=== PATIENT | male | born 1950 | race Hispanic/Latino ===

== ENCOUNTER → 2019-07-27 | Outpatient (CLI) | payer OTHER, MEDICARE | END | disposition home or self-care (01) | LOC: RAH 11:28 | PROVIDERS: ATTEND Internal Medicine | DX: M19.072 Primary osteoarthritis, left ankle and foot (principal); M20.12 Hallux valgus (acquired), left foot; M79.601 Pain in right arm | CPT/HCPCS: 73060; 73630 ==

== ENCOUNTER → 2022-10-15 | Outpatient (CLI) | payer OTHER, MEDICARE | END | disposition home or self-care (01) | LOC: RAH 09:37 | PROVIDERS: ATTEND Internal Medicine | DX: R10.84 Generalized abdominal pain (principal) | CPT/HCPCS: 76700; 76856 ==

== ENCOUNTER 2023-02-28 06:50 | Day surgery (SDC) | payer OTHER, MEDICARE ==
[2023-02-25 10:54] LABS: APPEARANCE,URINE CLEAR (CLEAR); BILIRUBIN,URINE NEGATIVE (NEGATIVE); COLOR,URINE COLORLESS (YELLOW); GLUCOSE, URINE (UA) NEGATIVE (NEGATIVE); KETONES,URINE NEGATIVE (NEGATIVE); LEUKOCYTE ESTERASE ,URINE NEGATIVE Leu/uL (NEGATIVE); NITRATE,URINE NEGATIVE (NEGATIVE); OCCULT BLOOD,URINE NEGATIVE (NEGATIVE); PROTEIN,URINE NEGATIVE (NEGATIVE); UROBILINOGEN,URINE 0.2 mg/dL (0.2-1.0)
[2023-02-25 10:56] LABS: ADD UA MICROSCOPIC NO
[2023-02-25 11:29] VITALS: BP 165/69; PULSE 67; RESP 17
[2023-02-25 11:36] LABS: BASOPHILS # (AUTO) 0.06 K/uL (0.00-0.20); BASOPHILS % (AUTO) 0.8 % (0.0-5.0); EOSINOPHILS # (AUTO) 0.15 K/uL (0.00-0.70); EOSINOPHILS % (AUTO) 2.1 % (0.0-8.0); HEMATOCRIT 41.7 % (42-54); IMMATURE GRANULOCYTE ABSOLUTE 0.02 K/uL (0-1); LYMPHOCYTES # (AUTO) 1.5 K/uL (1.0-4.8); LYMPHOCYTES % (AUTO) 21.2 % (21.0-51.0); MEAN CORPUSCULAR HEMOGLOBIN 31.6 pg (27.0-33.0); MEAN CORPUSCULAR HGB CONC 32.6 g/dL (32.0-36.0); MEAN CORPUSCULAR VOLUME 96.8 fL (79-99); MONOCYTES # (AUTO) 0.7 K/uL (0.1-1.0); NEUTROPHILS # (AUTO) 4.8 K/uL (1.8-7.7); NEUTROPHILS % (AUTO) 66.6 % (40.0-77.0); PLATELET COUNT (AUTO) 314 K/uL (130-400); RED BLOOD CELL COUNT(AUTO) 4.31 MIL/uL (4.50-6.20); RED CELL DISTRIBUTION WIDTH 13.2 % (11.0-15.5); WHITE BLOOD COUNT (AUTO) 7.2 K/uL (4.8-10.8)
[2023-02-25 11:50] LABS: CREATININE 0.8 mg/dL (0.5-1.5)
[2023-02-25 11:52] LABS: INR < 0.93 (0.85-1.15); PROTHROMBIN TIME 10.7 SEC (9.6-11.6)
[2023-02-25 11:54] LABS: PARTIAL THROMBOPLASTIN TIME 28.1 SEC (26.3-35.5)
[~2023-02-28] VITALS: Ht 147.3 cm; Wt 51.9 kg
[2023-02-28] VITALS (19 sets, daily range): BP systolic 124–162; BP diastolic 52–78; PULSE 56–87; RESP 10–19
[~2023-02-28 06:50] MED LIST: BUSP5TAB3 PO; CALC-1125 PO; CHOL100040 PO; KRIL1CAP29 PO; LEVO5TAB13 PO; MELA1TAB64 PO; MIRT-72 PO; MULT-1296 PO; PANT20TA18 PO; SIME125C81 PO
[2023-02-28] MEDS ORDERED: LACTATED RINGERS 1000ML 1,000 ML IV ONE (06:54)
[2023-02-28] MEDS ORDERED: CEFAZOLIN SODIUM 2 GM VIAL ONE (06:54)
[2023-02-28] MEDS ORDERED: BUPIVACAINE/PF 0.5% 10ML VIAL ONE (06:57)
[2023-02-28] MEDS ORDERED: BUPIVACAINE/PF 0.25% 30ML VIAL IJ ONE (06:57)
[2023-02-28] MEDS ORDERED: [UNRECOGNIZED DRUG - OTHER] PO (07:24)
[2023-02-28] MEDS ORDERED: PROPOFOL 10 MG/ML 20ML VIAL IV ONE (07:32)
[2023-02-28] MEDS ORDERED: LIDOCAINE PF 100MG/5ML (2%) SYRINGE 5ML ONE (07:32)
[2023-02-28] MEDS ORDERED: FENTANYL CITRATE PF 50 MCG/1 ML 2ML VIAL ONE ×2 (07:33→09:58)
[2023-02-28] MEDS ORDERED: ROCURONIUM 10MG/1ML SYR 10 MG/ML ML ONE (07:33)
[2023-02-28] MEDS ORDERED: PHENYLEPHRINE HCL 10 MG/ML 1ML VIAL IV ONE (09:04)
[2023-02-28] MEDS ORDERED: ONDANSETRON 4MG INJ ONE (09:05)
[2023-02-28] MEDS ORDERED: DEXAMETHASONE SOD PHOSPHATE 4 MG/ML 1ML VIAL ONE (09:05)
[2023-02-28] MEDS ORDERED: GLYCOPYRROLATE 1 MG/5 ML SYRINGE ONE (09:50)
[2023-02-28] MEDS ORDERED: NEOSTIGMINE 5MG/5ML SYR IV ONE (09:51)
== END 2023-02-28 12:20 | disposition home or self-care (01) ==
LOC: DAH 06:50 → EDSEX 10:00 → DAH 12:20
PROVIDERS: ATTEND Student in an Organized Health Care Education/Training Program
DX: K40.20 Bilateral inguinal hernia, without obstruction or gangrene, not specified as recurrent (principal); E78.00 Pure hypercholesterolemia, unspecified; Z79.01 Long term (current) use of anticoagulants; Z79.899 Other long term (current) drug therapy; Z90.710 Acquired absence of both cervix and uterus; Z98.890 Other specified postprocedural states; Z88.3 Allergy status to other anti-infective agents; Z88.2 Allergy status to sulfonamides
CPT/HCPCS: 80048; 85025; 85610; 85730; 81003; 36415; 49650; 64488; A6260; J1100; C1781 ×2; A4663; J7120 ×2; A4344; J3010 ×2; J3490; J2710; J0665; J2001; J2704; J2405; J2371; J0690; C1769; C1713; A4215; A4223; A4222; A4221; A4600; G0168